=== PATIENT | male | born 1995 | race Asian ===

== ENCOUNTER → 2017-12-07 19:32 | Emergency (ER) | payer OTHER ==
[~2017-12-07 19:32] MED LIST: Ibuprofen TAB* 600 MG PO ONE; Lidocaine 2% VISCOUS* 15 ML UDC PO ONE
[2017-12-07 22:12] LABS: ABS Basophils 0 10^3/ul (0-0.2); ABS Eosinophils 0 10^3/ul (0-0.6); ABS Lymphocytes 1.2 10^3/ul (1.0-4.8); ABS Monocytes 1.4 10^3/ul (0-0.8); ABS Neutrophils 8.7 10^3/ul (1.5-7.7); ABS Nucleated RBC 0 10^3/ul; Eosinophil % 0.1 % (0-6); Hematocrit 43 % (42-52); Hemoglobin 14.8 g/dl (14.0-18.0); Lymphocyte % 10.8 % (25-47); Mean Corpuscular HGB Conc 34 g/dl (31-36); Mean Corpuscular Hemoglobin 30 pg (27-31); Mean Corpuscular Volume 87 fL (80-94); Mean Platelet Volume 7.7 um3 (7.4-10.4); Nucleated Red Blood Cells % 0.1; Platelet Count 179 10^3/ul (150-450); Red Blood Count 4.99 10^6/ul (4.00-5.40); Red Cell Distribution Width 13 % (10.5-15); White Blood Count 11.3 10^3/ul (3.5-10.8)
[2017-12-07 22:27] LABS: EGFR Non-African American 97.7 (>60)
--- NOTE | 2017-12-07 22:27 | ED ---
HPI Febrile Illness - HPI Summary HPI Summary: 22-year-old male presents with fever for past couple days. He admits to sinus congestion. He admits to sore throat. No chest pain or shortness breath. He denies any cough for the past couple days. No abd pain, n/v/d. He admits to a headache. He has been using Tylenol, dayquil and nyquil. He admits to muscle aches. He states he was sick 3 weeks ago prior but that resolved. No medical conditions. - History of Current Complaint Chief Complaint: EDFever Time Seen by Provider: 12/07/17 21:19 Pain Intensity: 6 - Allergy/Home Medications Allergies/Adverse Reactions: Allergies Allergy/AdvReac Type Severity Reaction Status Date / Time No Known Allergies Allergy Verified 12/07/17 19:38 Home Medications: Home Medications NK [No Home Medications Reported] 12/07/17 [History Confirmed 12/07/17] PMH/Surg Hx/FS Hx/Imm Hx Endocrine/Hematology History: Denies: Hx Anticoagulant Therapy Cardiovascular History: Denies: Hx Hypertension Infectious Disease History: No Infectious Disease History: Denies: Traveled Outside the [place] in Last 30 Days - Family History Known Family History: Negative: Respiratory Disease - Social History Alcohol Use: Occasionally Substance Use Type: Reports: None Smoking Status (MU): Never Smoked Tobacco Review of Systems Positive: Fever Positive: Sore Throat, Ear Ache Negative: Chest Pain Negative: Shortness Of Breath, Cough All Other Systems Reviewed And Are Negative: Yes Physical Exam Triage Information Reviewed: Yes Vital Signs On Initial Exam: Initial Vitals Temp Pulse Resp BP Pulse Ox 100.0 F 75 16 135/65 100 12/07/17 19:34 12/07/17 19:34 12/07/17 19:34 12/07/17 19:34 12/07/17 19:34 Vital Signs Reviewed: Yes Appearance: Positive: Well-Appearing Skin: Positive: Warm, Dry Head/Face: Positive: Normal Head/Face Inspection Eyes: Positive: Normal, EOMI, MITZI, Conjunctiva Clear ENT: Positive: Normal ENT inspection, Pharynx normal, TMs normal Neck: Positive: Supple, Nontender, No Lymphadenopathy Respiratory/Lung Sounds: Positive: Clear to Auscultation, Breath Sounds Present Cardiovascular: Positive: Normal, RRR Abdomen Description: Positive: Nontender, Soft Bowel Sounds: Positive: Present Musculoskeletal: Positive: Normal Neurological: Positive: Normal Psychiatric: Positive: Normal Diagnostics - Vital Signs Vital Signs Temp Pulse Resp BP Pulse Ox 12/07/17 19:34 100.0 F 75 16 135/65 100 - Laboratory Lab Results: Lab Results 12/07/17 12/07/17 12/07/17 Range/Units 21:40 21:40 22:05 WBC 11.3 H (3.5-10.8) 10^3/ul RBC 4.99 (4.00-5.40) 10^6/ul Hgb 14.8 (14.0-18.0) g/dl Hct 43 (42-52) % MCV 87 (80-94) fL MCH 30 (27-31) pg MCHC 34 (31-36) g/dl RDW 13 (10.5-15) % Plt Count 179 (150-450) 10^3/ul MPV 7.7 (7.4-10.4) um3 Neut % (Auto) 76.9 (38-83) % Lymph % (Auto) 10.8 L (25-47) % George % (Auto) 11.9 H (0-7) % Eos % (Auto) 0.1 (0-6) % Baso % (Auto) 0.3 (0-2) % Absolute Neuts (auto) 8.7 H (1.5-7.7) 10^3/ul Absolute Lymphs (auto) 1.2 (1.0-4.8) 10^3/ul Absolute Monos (auto) 1.4 H (0-0.8) 10^3/ul Absolute Eos (auto) 0 (0-0.6) 10^3/ul Absolute Basos (auto) 0 (0-0.2) 10^3/ul Absolute Nucleated RBC 0 10^3/ul Nucleated RBC % 0.1 Monoscreen Negative (Negative) Influenza A (Rapid) Negative (Negative) Influenza B (Rapid) Negative (Negative) Group A Strep Rapid Negative (Negative) Result Diagrams: 12/07/17 22:05 12/07/17 22:05 Lab Statement: Any lab studies that have been ordered have been reviewed, and results considered in the medical decision making process. Course/Dx - Course Course Of Treatment: 22-year-old male presents with fever for past couple days. He admits to sinus congestion. He admits to sore throat. No chest pain or shortness breath. He denies any cough for the past couple days. No abd pain, n /v/d. He admits to a headache. He has been using Tylenol, dayquil and nyquil. He admits to muscle aches. He states he was sick 3 weeks ago prior but that resolved. No medical conditions. On exam lungs auscultation. Pharynx shows postnasal drip present. Sinus congestion noted been there for 3 days. Labs within normal limits. Flu strep and mono negative. Discuss is likely viral. Discuss can add on flonase but caution as has a history of nosebleeds. Told to use saline in nose. Patient understands agrees with plan. - Febrile Illness Differential Diagnoses: Pneumonia, Other: - upper resp, bronchitis - Diagnoses Provider Diagnoses: Upper respiratory infection Discharge - Sign-Out/Discharge Documenting (check all that apply): Patient Departure - Discharge Plan Condition: Good Disposition: HOME Patient Education Materials: Upper Respiratory Infection (ED) Referrals: No Primary Care Phys,NOPCP [Primary Care Provider] - Additional Instructions: Use saline spray in nose as much as needed Take Tylenol or ibuprofen every 6 hours as need for fever or aches Can gargle salt water Can use cough drops or products such as cloraseptic spray Return to ED if develop any new or worsening symptoms - Billing Disposition and Condition Condition: GOOD Disposition: Home
[2017-12-07 23:28] VITALS: BP 133/68
== END | disposition home or self-care (01) ==
LOC: ED 19:32
DX: J06.9 Acute upper respiratory infection, unspecified (principal); R50.9 Fever, unspecified; J02.9 Acute pharyngitis, unspecified; H92.09 Otalgia, unspecified ear
CPT/HCPCS: 36415; 80053; 85025; 86308; 87651; 99282; A9270-GY